=== PATIENT | female | born 1985 | race African-American/Black ===

== ENCOUNTER 2021-10-22 14:03 | Emergency (ER) | payer OTHER ==
[2021-10-22 14:15] VITALS: BP 95/56; PULSE 70; TEMP 98.3; BMI 23.4
[2021-10-22] MEDS ORDERED: KETOROLAC TROMETHAMINE 30 MG/1 ML VIAL IM ONE (15:31)
[2021-10-22] MEDS ORDERED: ACETAMINOPHEN 500 MG TABLET (FP) PO ONE (15:32)
[2021-10-22] MEDS ORDERED: KETOROLAC TROMETHAMINE 30 MG/1 ML VIAL ONE (15:34)
[2021-10-22] MEDS ORDERED: ACETAMINOPHEN 500 MG TABLET (FP) ONE (15:35)
== END 2021-10-22 16:28 | disposition home or self-care (01) ==
LOC: JERFT 14:03
PROC: 3E0233Z Introduction of Anti-inflammatory into Muscle, Percutaneous Approach (ICD-10-PCS; principal; 2021-10-22)
DX: G50.8 Other disorders of trigeminal nerve (principal)
CPT/HCPCS: 96372; 99284-25

== ENCOUNTER 2021-10-27 02:24 | Emergency (ER) | payer OTHER ==
[2021-10-27 02:32] VITALS: BMI 23.2
[2021-10-27] MEDS ORDERED: ACETAMINOPHEN 1000 MG/100 ML BAG IVPB ONE (03:23)
[2021-10-27] MEDS ORDERED: ACETAMINOPHEN INJECTION 100 ML IVPB ONE (03:25)
[2021-10-27 03:40] LABS: BASO % 0.5 % (0-2.0); EOS % 0.6 % (0-4.5); HEMATOCRIT 37.6 % (32.4-45.2); HEMOGLOBIN 12.7 GM/dL (10.7-15.3); LYMPH % 20.4 % (8-40); MCH 27.9 pg (25.7-33.7); MCHC 33.9 g/dl (32.0-36.0); MEAN CELL VOLUME 82.2 fl (80-96); MEAN PLT VOLUME 9.1 fl (7.5-11.1); MONO % 11.4 % (3.8-10.2); NEUT % 67.1 % (42.8-82.8); PLATELET COUNT 230 10^3/uL (134-434); RBC 4.57 M/mm3 (3.60-5.2); RDW 13.9 % (11.6-15.6); WHITE BLOOD COUNT 12.5 K/mm3 (4.0-10.0)
[2021-10-27 04:14] LABS: ALBUMIN 4.2 g/dl (3.4-5.0); CALCIUM 8.9 mg/dL (8.5-10.1)
[2021-10-27 04:15] LABS: BLOOD UREA NITROGEN 6.8 mg/dL (7-18)
[2021-10-27 04:18] LABS: CREATININE 0.7 mg/dL (0.55-1.3)
[2021-10-27 04:19] LABS: BILIRUBIN,TOTAL 0.4 mg/dL (0.2-1); TOT PROT 7.6 g/dl (6.4-8.2)
[2021-10-27] MEDS ORDERED: oxyCODONE HCL 5 MG TABLET PO ONE (05:59)
[2021-10-27] MEDS ORDERED: CLINDAMYCIN 600MG PREMIX IVPB 600 MG/50 ML BAG IVPB ONE ×2 (05:59→06:07)
[2021-10-27] MEDS ORDERED: oxyCODONE HCL 5 MG TABLET ONE (06:07)
[2021-10-27 08:40] VITALS: BP 102/60; PULSE 80; TEMP 98.2
[2021-10-28 18:07] LABS: SARS-CoV-2 NAA Not Detected (Not Detected)
== END 2021-10-27 08:30 | disposition short-term general hospital (02) ==
LOC: JER 02:24
PROC: 3E033GC Introduction of Other Therapeutic Substance into Peripheral Vein, Percutaneous Approach (ICD-10-PCS; principal; 2021-10-27)
DX: K04.7 Periapical abscess without sinus (principal)
CPT/HCPCS: 36415; 70491-TC; 80053; 85025; 96365; 96375; 99285-25; C9803; Q9967; U0003; U0005

== ENCOUNTER 2023-02-25 15:55 | Emergency (ER) | payer OTHER ==
[2023-02-25 16:12] VITALS: BP 115/68; PULSE 79; RESP 18; TEMP 98; BMI 24.4
[2023-02-25] MEDS ORDERED: ACETAMINOPHEN 325 MG TABLET (FP) PO ONE (16:16)
[2023-02-25] MEDS ORDERED: ACETAMINOPHEN 325 MG TABLET (FP) ONE (16:39)
== END 2023-02-25 19:02 | disposition home or self-care (01) ==
LOC: JER 15:55
DX: R51.9 Headache, unspecified (principal); R22.0 Localized swelling, mass and lump, head; S02.2XXA Fracture of nasal bones, initial encounter for closed fracture; W50.0XXA Accidental hit or strike by another person, initial encounter; G50.0 Trigeminal neuralgia
CPT/HCPCS: 70450-TC; 70486-TC; 99284-25

== ENCOUNTER 2023-03-05 05:17 | Day surgery (SDC) | payer OTHER ==
[2023-03-04 14:50] VITALS: BMI 24.4
[2023-03-05] MEDS ORDERED: ACETAMINOPHEN INJECTION 100 ML IVPB ONE (12:51)
[2023-03-05] MEDS ORDERED: COCAINE HCL 4% TOPICAL SOLUTION 4 ML BOTTLE TP ONE (13:10)
[2023-03-05] MEDS ORDERED: ceFAZolin SODIUM 1 GM VIAL ONE (13:11)
[2023-03-05] MEDS ORDERED: KETOROLAC TROMETHAMINE 30 MG/1 ML VIAL ONE (13:11)
[2023-03-05] MEDS ORDERED: MIDAZOLAM HCL 2 MG/2 ML SINGLE DOSE VIAL ONE (13:11)
[2023-03-05] MEDS ORDERED: DEXAMETHASONE SOD PHOSPHATE 4 MG/1 ML VIAL ONE (13:11)
[2023-03-05] MEDS ORDERED: PROPOFOL 20 ML ONE (13:11)
[2023-03-05] MEDS ORDERED: LIDOCAINE HCL/PF 2% SDV 5ML VIAL ONE (13:11)
[2023-03-05] MEDS ORDERED: ONDANSETRON 4 MG/2 ML VIAL ONE (13:11)
[2023-03-05] MEDS ORDERED: OXYMETAZOLINE 0.05% NASAL SOLUTION 15 ML BOTTLE NS ONE (13:56)
[2023-03-05] MEDS ORDERED: ONDANSETRON 4 MG/2 ML VIAL IVPUSH ONE (14:28)
[2023-03-05] MEDS ORDERED: LACTATED RINGERS SOLUTION 1,000 ML IV SCH (14:30)
[2023-03-05] MEDS ORDERED: oxyCODONE HCL 5 MG TABLET PO PRN (15:11)
[2023-03-05] MEDS ORDERED: oxyCODONE HCL 5 MG TABLET ONE (15:49)
[2023-03-05 16:04] VITALS: RESP 20; TEMP 98.1
[2023-03-05 16:09] VITALS: BP 118/53; PULSE 59
== END 2023-03-05 16:15 | disposition home or self-care (01) ==
LOC: JASU-SURG 05:17
PROVIDERS: ATTEND Otolaryngology
PROC: 0NSBXZZ Reposition Nasal Bone, External Approach (ICD-10-PCS; principal; 2023-03-05 13:00)
DX: S02.2XXA Fracture of nasal bones, initial encounter for closed fracture (principal); X58.XXXA Exposure to other specified factors, initial encounter; Y93.9 Activity, unspecified; Y92.9 Unspecified place or not applicable
CPT/HCPCS: 81025; 93005; 93010; 94760

== ENCOUNTER 2025-04-06 09:38 | Inpatient (IN) | payer MEDICARE, OTHER ==
[2025-04-06 09:49] VITALS: BMI 23.4
[2025-04-06] MEDS ORDERED: ACETAMINOPHEN INJECTION 100 ML ONE (10:21)
[2025-04-06] MEDS ORDERED: ONDANSETRON 4 MG/2 ML VIAL ONE (10:58)
[2025-04-06 11:02] LABS: ABSOLUTE IMMATURE GRANULOCYTES 0.06 x10^3/uL (0.0-0.031); BASOPHILS # 0.03 x10^3/uL (0.01-0.08); EOSINOPHIL % 0.1 % (0.7-5.8); EOSINOPHILS # 0.01 x10^3/uL (0.04-0.36); MCHC 34.1 g/dl (32.2-35.5); MEAN CELL VOLUME 83.1 fl (79.4-94.8); MEAN PLT VOLUME 10.8 fl (9.4-12.3); MONOCYTE # 1.27 x10^3/uL (0.24-0.86); MONOCYTE % 8.2 % (4.7-12.5); RDW 13.1 % (12.1-16.8)
[2025-04-06] MEDS: LACTATED RINGERS SOLUTION 1000 ML INFUS.BAG IV ONE (11:10)
[2025-04-06] MEDS: ONDANSETRON 4 MG/2 ML VIAL IVPUSH ONE (11:10)
[2025-04-06] MEDS: ACETAMINOPHEN 1000 MG/100 ML BAG IVPB ONE (11:10)
[2025-04-06 11:17] LABS: GLUCOSE,RANDOM 85.0 mg/dL (74-106); TOT PROT 8.0 g/dl (6.4-8.2)
[2025-04-06 11:18] LABS: CO2 23.0 mmol/L (21-32)
[2025-04-06 11:20] LABS: ALK PHOS 89.0 U/L (40-150)
[2025-04-06 11:23] LABS: CREATININE 0.69 mg/dL (0.55-1.3); SGOT/AST 48.0 U/L (5-34); SGPT/ALT 12.0 U/L (0-55)
[2025-04-06 11:26] LABS: EPI CELLS 16 /uL (0-25.1); HYALINE CASTS 1 /uL (0-3.1); URINE APPEARANCE TURBID; URINE BACTERIA >9,000 /uL (0-1359); URINE BILIRUBIN NEGATIVE (NEGATIVE); URINE COLOR YELLOW; URINE GLUCOSE (UA) NEGATIVE (NEGATIVE); URINE KETONE 2+ (NEGATIVE); URINE LEUK ESTERASE 3+ (NEGATIVE); URINE NITRITE NEGATIVE (NEGATIVE); URINE PROTEIN 2+ (NEGATIVE); URINE UROBILINOGEN 0.2 mg/dL (0.2-1.0); URINE WBC 12665 /uL (0-25.8)
[2025-04-06 11:32] LABS: INR 1.26 (0.83-1.09); PROTHROMBIN TIME (PATIENT) 13.9 SEC (9.7-13.0)
[2025-04-06 11:34] LABS: ACTIVATED PTT 25.8 SECONDS (25.2-36.5)
[2025-04-06 11:40] LABS: URINE RBC 193 /uL (0-23.9)
[2025-04-06] MEDS: METOCLOPRAMIDE HCL INJECTION 10 MG/2 ML VIAL IVPUSH ONE (17:15)
[2025-04-06] MEDS: KETOROLAC TROMETHAMINE 30 MG/1 ML VIAL IVPUSH PRN (17:20)
[2025-04-06] MEDS: FAMOTIDINE 20 MG/50 ML IVPB 20 MG/50 ML MG IVPB ONE (17:20)
[2025-04-06] MEDS: SODIUM CHLORIDE 500 ML IV STA (17:25)
[2025-04-06] MEDS: ACETAMINOPHEN 1000 MG/100 ML BAG IVPB PRN (17:34)
[2025-04-06] MEDS: PIPERACILLIN/TAZOB 4.5 GM 4.5 GM in DEXTROSE 5%-WATER 100 ML IVPB ONE (18:17)
[2025-04-06] MEDS: SODIUM CHLORIDE 1,000 ML IV SCH (18:47)
[2025-04-06] MEDS: VANCOMYCIN/WATER FOR INJ (PEG) 1,000 MG/200 ML BAG IVPB ONE (18:53)
[2025-04-06 18:54] LABS: HIV INTERPRETATION NEGATIVE (NEGATIVE)
[2025-04-06 18:56] LABS: HCV DIAGNOSTIC IN-HOUSE W/RFLX NON-REACTIVE (NONREACTIVE)
[2025-04-06] MEDS: HEPARIN NA (PORCINE) 5,000 UNITS/ML 1ML VIAL SQ SCH (21:31)
[2025-04-07] MEDS: PIPERACILLIN/TAZOB 3.375 GM 3.375 GM in DEXTROSE 5%-WATER - 50 ML IVPB SCH (01:31)
[2025-04-07] MEDS: ONDANSETRON 4 MG/2 ML VIAL IVPB PRN (10:23)
[2025-04-07] MEDS: PANTOPRAZOLE 40 MG TABLET PO SCH (10:24)
[2025-04-08 08:35] LABS: MCHC 33.3 g/dl (32.2-35.5); MEAN CELL VOLUME 84.1 fl (79.4-94.8); MEAN PLT VOLUME 11.7 fl (9.4-12.3); RDW 12.9 % (12.1-16.8)
[2025-04-08 09:00] LABS: GLUCOSE,RANDOM 111.0 mg/dL (74-106)
[2025-04-08 09:01] LABS: TOT PROT 6.0 g/dl (6.4-8.2)
[2025-04-08 09:02] LABS: CO2 21.0 mmol/L (21-32)
[2025-04-08 09:06] LABS: CREATININE 0.66 mg/dL (0.55-1.3); SGOT/AST 24.0 U/L (5-34); SGPT/ALT 11.0 U/L (0-55)
[2025-04-08 09:28] LABS: ALK PHOS 72.0 U/L (40-150)
[2025-04-09 03:13] VITALS: RESP 18
[2025-04-09 14:48] VITALS: BP 119/61; PULSE 62; TEMP 98.1
== END 2025-04-09 16:20 | disposition home or self-care (01) | DRG 690 ==
LOC: JER 09:38 → JERBED 13:29 → J6S 16:19 → OBSVTOIN 16:34
PROVIDERS: ADMIT Family Medicine; ATTEND Family Medicine
DX: N10 Acute pyelonephritis (principal); N30.00 Acute cystitis without hematuria; R50.9 Fever, unspecified; R11.2 Nausea with vomiting, unspecified; G35 Multiple sclerosis; G50.0 Trigeminal neuralgia; B96.20 Unspecified Escherichia coli [E. coli] as the cause of diseases classified elsewhere; F12.90 Cannabis use, unspecified, uncomplicated; R35.0 Frequency of micturition
CPT/HCPCS: 36415; 71045-TC-FY; 74177-TC; 76775-TC; 80053; 81003; 83605; 84703; 85025; 85027; 85610; 85730; 86803; 87040; 87086; 87389; 87637-QW; 93005; 93010; 99285-25; G0378